=== PATIENT | female | born 2000 | race Hispanic/Latino ===

== ENCOUNTER 2023-11-22 20:42 | Emergency (ER) | payer MEDICAID, SELFPAY ==
--- NOTE | ~2023-11-22 | US_ITS ---
Pelvic ultrasound. Clinical History: Cramping, second trimester Technique: Realtime transabdominal and transvaginal scanning of the pelvis was performed. Color flow Doppler and Doppler spectral analysis were performed. Findings: The uterus is anteverted, and contains an intrauterine gestation. Cervix closed, measuring 4.9 cm in length. Placenta located towards the fundus. Biparietal diameter is 3.1 cm. Head circumfere nce is 11.4 cm. heart rate 157 bpm. Abdominal circumference is 9.9 cm. Femur length is 1.9 cm. Amniotic fluid index is 8.1.. The right ovary measures 3.6 x 1.8 x 2.3 cm. No significant right ovarian or adnexal mass is seen. The left ovary measures 2.4 x 1.6 x 2.2 cm. No significant left ovarian or adnexal mass is seen. There is no evidence of free fluid in the cul de sac. Impression: Live intrauterine gestation, with estimated gestational age of 15 weeks 4 days. heart rate 157 bpm. Sonographic WALTER is 05/11/2024. Reviewed, dictated and finalized at [facility]. INIST JOB SETTER Impression: Live intrauterine gestation, with estimated gestational age of 15 weeks 4 days. heart rate 157 bpm. Sonographic WALTER is 05/11/2024.
[2023-11-22 20:44] VITALS: BP 114/73; PULSE 94; RESP 18; TEMP 36.4; O2SAT 100
[2023-11-22 21:09] LABS: Basophils Percent Auto 0.2 % (0.2-1.2); Eosinophils Percent Auto 0.3 % (0-4.4); Hematocrit 36.9 % (37.0-47.0); Hemoglobin 12.6 g/dL (12.0-15.0); Immature Granulocyte Absolute 0.04 K/mm3 (0.00-0.031); Immature Granulocyte Percent A 0.4 % (0-0.5); Lymphocytes Absolute Auto 1.52 K/mm3 (0.9-3.2); Lymphocytes Percent Auto 13.8 % (18.3-44.2); Mean Corpuscular HGB Conc 34.1 g/dl (32-36); Mean Corpuscular Hemoglobin 30.4 pg (26-34); Mean Corpuscular Volume 88.9 fl (80-100); Mean Platelet Volume 9.3 fl (7.4-10.4); Monocytes Absolute Auto 0.7 K/mm3 (0.1-0.6); Monocytes Percent Auto 6.3 % (2.6-8.5); Neutrophils Absolute Auto 8.7 K/mm3 (1.3-6.7); Platelet Count Result 303 k/mm3 (150-375); Red Blood Count 4.15 M/mm3 (4.2-5.4); Red Cell Distribution Width 13.3 % (11.5-14.5)
[2023-11-22 21:13] LABS: Appearance Urine Cloudy (Clear); Bacteria Urine 2+ /hpf; Bilirubin Urine Negative (Negative); Blood Urine 3+ (Negative); Color Urine Yellow (Yellow); Glucose Urine UA Negative (Negative); Ketones Urine 2+ mg/dL (Negative); Leukocyte Esterase Ur 3+ LEU/UL (Negative); Nitrate Urine Positive (Negative); Protein Urine 2+ mg/dL (Negative); Specific Grav Ur 1.006 (1.001-1.035); Squamous Epithelial Cell Urine Moderate /hpf (Few); Urobilinogen Urine 0.2 mg/dL (<2.0); WBC Urine >100 /hpf; pH Urine 5.5 (5.0-9.0)
[2023-11-22 21:20] LABS: Alanine Aminotransferase 12 U/L (6-35); Albumin Level 3.9 g/dL (3.5-5.1); Alkaline Phosphatase 50 U/L (38-126); Anion Gap 11 mmol/L (8-16); Aspartate Amino Transferase 25 U/L (14-36); Bilirubin,Total 0.3 mg/dL (0.2-1.3); Blood Urea Nitrogen 4 mg/dL (7-17); Calcium 8.9 mg/dL (8.4-10.2); Carbon Dioxide 19 mmol/L (22-30); Chloride 105 mmol/L (98-107); Estimated CRCL calculation 119 ml/min; Estimated Glomerular Filt Rate > 60; Glucose 113 mg/dL (65-110); Lipase 27 U/L (23-300); Potassium 3.4 mmol/L (3.4-5.0); Sodium 135 mmol/L (137-145)
[2023-11-22 21:21] LABS: Add Urine Microscopic? YES
[2023-11-22 23:25] LABS: Influenza A QL RT-PCR Negative (Negative); Influenza B QL RT-PCR Negative (Negative); SARS-CoV-2 RNA PCR Negative (Negative)
[2023-11-22] MEDS: SODIUM CHLORIDE 0.9% IV 1,000 ML 999 ML IV CONT (23:44)
[2023-11-22] MEDS: ACETAMINOPHEN 500 MG TABLET 1000 MG PO (23:54)
--- NOTE | 2023-11-23 01:32 | ED.ABDPAIN ---
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 Reports the pain radiates to her left flank. It is sharp in nature. Also reports urinary frequency. Denies fevers, vomiting, dysuria, or hematuria. Related Data Allergies Allergy/AdvReac Type Severity Reaction Status Date / Time No Known Allergies Allergy Verified 11/22/23 20:46 Review of Systems Review of Systems: CONSTITUTIONAL: Denies fever GASTROINTESTINAL: Reports abdominal pain. Denies nausea, vomiting GENITOURINARY: Denies dysuria or hematuria. All systems reviewed & are unremarkable except as noted in HPI and below PMFSH Past Medical History Medical History (Updated 11/23/23 @ 01:42 by Dorina Christie PA-C) No active medical problems Social History Social History (Updated 11/23/23 @ 01:35 by Dorina Christie PA-C) Smoking status: Never smoker Exam Narrative: GENERAL: Well-appearing, well-nourished, and in no acute distress. HEAD: Normocephalic, atraumatic. EYES: EOMI. CHEST: Clear to auscultation. No respiratory distress. No wheezes rales or rhonchi HEART: Regular rate and rhythm. No murmur heard. Normal peripheral pulses. ABDOMEN: Gravid, nontender, nondistended, normal active bowel sounds. EXTREMITIES: Normal range of motion. No edema. SKIN: Warm, dry, no rash. NEURO: No focal deficits. Alert and oriented x3. PSYCH: Normal mood and affect Course Course Emergency Course: patient and family updated on workup and agree with plan of care. patient reports feeling much better Vital Signs Vital signs: Vital Signs Temperature 97.6 F 11/22/23 20:44 Pulse Rate 94 11/22/23 20:44 Respiratory Rate 18 11/22/23 20:44 Blood Pressure 114/73 11/22/23 20:44 Pulse Oximetry 100 11/22/23 20:44 Oxygen Delivery Room Air 11/22/23 20:44 Temperature 97.6 F 11/22/23 20:44 Pulse Rate 94 11/22/23 20:44 Respiratory Rate 18 11/22/23 20:44 Blood Pressure 114/73 11/22/23 20:44 Pulse Oximetry 100 11/22/23 20:44 Oxygen Delivery Room Air 11/22/23 20:44 MDM - Abdominal Pain MDM Narrative Medical decision making narrative: Patient presents to the emergency department for lower abdominal discomfort, about 16 weeks . She is afebrile and nontoxic appearing. Her vitals are stable. CBC with mild leukocytosis to 11. Metabolic panel without concerning findings. Urine is consistent with infection. Ultrasound OB is without acute abnormalities. Shows single, viable intrauterine gestation. Patient hydrated with L of IV fluids and given dose of Tylenol with relief. Given 1st dose of antibiotics IV in the ED. Will be continued on oral antibiotics and was instructed to have close follow-up with her OB. She was given warnings to return to the ER Differential Diagnosis Differential diagnosis: Likely other ( UTI, pyelonephritis, dehydration, threatened ) Lab Data Attestation: I reviewed the patient's lab results. 11/22/23 20:53 11/22/23 20:53 Labs: Lab Results 11/22/23 11/22/23 11/22/23 Range/Units 20:53 20:53 20:58 WBC 11.0 H (4.5-10.0) K/mm3 RBC 4.15 L (4.2-5.4) M/mm3 Hgb 12.6 (12.0-15.0) g/dL Hct 36.9 L (37.0-47.0) % MCV 88.9 (80-100) fl MCH 30.4 (26-34) pg MCHC 34.1 (32-36) g/dl RDW 13.3 (11.5-14.5) % Plt Count 303 (150-375) k/mm3 MPV 9.3 (7.4-10.4) fl Immature Gran % (Auto) 0.4 (0-0.5) % Neut % (Auto) 79.0 H (45.5-73.1) % Lymph % (Auto) 13.8 L (18.3-44.2) % [place] % (Auto) 6.3 (2.6-8.5) % Eos % (Auto) 0.3 (0-4.4) % Baso % (Auto)
[2023-11-23 02:25] VITALS: BP 100/64; PULSE 88; RESP 16; O2SAT 99
== END 2023-11-23 02:26 | disposition home or self-care (01) ==
PROVIDERS: Emergency Medicine; Emergency Provider Physician Assistant
DX: O23.02 Infections of kidney in pregnancy, second trimester (principal); Z3A.15 15 weeks gestation of pregnancy; Z20.822 Contact with and (suspected) exposure to COVID-19
CPT/HCPCS: 36415; 76816; 80053; 81001; 83690; 84702; 85025; 87086; 87186; 87636; 96361; 96365; 99284; A9270; J0696; J7030

== ENCOUNTER 2024-05-12 11:13 | Inpatient (IN) | payer OTHER, SELFPAY ==
[2024-05-12] VITALS (15 sets, daily range): BP systolic 88–118; BP diastolic 59–81; PULSE 73–127; RESP 16; TEMP 36.6–37; O2SAT 99; BMI 28.3
[2024-05-12 12:00] LABS: Basophils Percent Auto 0.2 % (0.2-1.2); Eosinophils Absolute Auto 0.1 K/mm3 (0-0.3); Hematocrit 35.7 % (37.0-47.0); Hemoglobin 11.9 g/dL (12.0-15.0); Immature Granulocyte Absolute 0.07 K/mm3 (0.00-0.031); Immature Granulocyte Percent A 0.7 % (0-0.5); Lymphocytes Absolute Auto 1.63 K/mm3 (0.9-3.2); Lymphocytes Percent Auto 17.3 % (18.3-44.2); Mean Corpuscular HGB Conc 33.3 g/dl (32-36); Mean Corpuscular Hemoglobin 30.1 pg (26-34); Mean Corpuscular Volume 90.4 fl (80-100); Mean Platelet Volume 10.2 fl (7.4-10.4); Monocytes Absolute Auto 0.8 K/mm3 (0.1-0.6); Monocytes Percent Auto 8.6 % (2.6-8.5); Neutrophils Absolute Auto 6.8 K/mm3 (1.3-6.7); Neutrophils Percent Auto 72.2 % (45.5-73.1); Platelet Count Result 257 k/mm3 (150-375); Red Blood Count 3.95 M/mm3 (4.2-5.4); Red Cell Distribution Width 13.5 % (11.5-14.5); White Blood Count 9.4 K/mm3 (4.5-10.0)
[2024-05-12] MEDS: LACTATED RINGERS 1,000 ML 125 ML IV CONT (12:01)
[2024-05-12] MEDS: AMPICILLIN 2 GM/NS 100 ML 2 GM/100 ML BAG IVPB (12:04)
[2024-05-12] MEDS: ONDANSETRON INJ 4 MG/2 ML VIAL IV PUSH (12:05)
[2024-05-12] MEDS: fentaNYL CITRATE INJ (*CRX) 100 MCG/2 ML VIAL 50 MCG IV PUSH ×2 (12:09→13:45)
[2024-05-12 12:51] LABS: HIV 1/2 Ab P24 Ag Result Negative (Negative)
[2024-05-12] MEDS: fentaNYL CITRATE INJ (*CRX) 100 MCG/2 ML VIAL IV PUSH (15:11)
[2024-05-12] MEDS: AMPICILLIN 1 GM/NS 50 ML 1 GM/50 ML BAG IVPB (15:59)
[2024-05-12] MEDS: OXYTOCIN 30 UNITS/NS 500 ML 30 UNITS/500 ML BAG 999 UNITS IV CONT (16:30)
--- NOTE | 2024-05-12 16:41 | P.PCNOB_ITS ---
OB - Vaginal Delivery Note Procedure Delivery date: 05/12/24 Induction method: None Delivery monitor: External FHT and External Uterine Route of delivery: Episiotomy description: None Laceration Description: Periurethral (left) Delivery repair: vicryl (3-0 on sh) Specimen: No Quantitative Blood Loss (ml): 200 Anesthesia type: Local Disposition: Floor Complications: No immediate complications Narrative: automotive painter helper used throughout pushing, delivery, and repair [place] Baby Date of : 05/12/24 Weeks of gestation at delivery: 40 (40 1/7) Infant gender: Male presentation: vertex position: Right Occiput Anterior Placenta delivery description: Spontaneous Cord Vessel Description: 3 Vessels and Other (short cord) score one minute: 9 score five minutes: 9
--- NOTE | 2024-05-12 16:41 | WPDOBADMIT ---
Obstetrics - Admit Note Admission Note: record reviewed. No pertinent additions to the history and/or any subsequent changes in the physical findings that are not consistent with the expected course of the were found. Additions to the history and/or subsequent changes in the physical findings follow. None.
--- NOTE | 2024-05-12 16:44 | PM.OBDSVD ---
DS: Admitting Diagnosis Discharge Date 05/14/24 Admitting Diagnosis IUP 40 10/29 in active labor DS: Discharge Diagnosis Discharge Diagnosis (1) (normal spontaneous vaginal delivery): Code(s): O80 - Encounter for full-term uncomplicated delivery Status: Acute OB - DS: Summary OB Procedures : Ultrasound OB Procedures Intrapartum: Spontaneous Vag Delivery OB Procedures: : None Peripartum Data Infant Delivery Method: Natural Vaginal Laceration Description: Periurethral (left) Episiotomy description: None complications: none Status at Discharge Functional status at discharge: independent ambulation Overall status at discharge: patient is progressing back to baseline Time Spent with Patient Time attestation: Total time spent providing and/or coordinating discharge services: DS: Data Data Completed and Pending Labs on day of discharge: Labs from last 24 hours 05/12/24 11:50 WBC 9.4 RBC 3.95 L Hgb 11.9 L Hct 35.7 L MCV 90.4 MCH 30.1 MCHC 33.3 RDW 13.5 Plt Count 257 MPV 10.2 Immature Gran % (Auto) 0.7 H Neut % (Auto) 72.2 Lymph % (Auto) 17.3 L [place] % (Auto) 8.6 H Eos % (Auto) 1.0 Baso % (Auto) 0.2 Lymph # (Auto) 1.63 [place] # (Auto) 0.8 H Eos # (Auto) 0.1 Baso # (Auto) 0.0 Abs Immat Gran (auto) 0.07 H Absolute Neuts (auto) 6.8 H Absolute Nucleated RBC 0.000 Nucleated RBC % 0.0 RPR Pending HIV 1&2 Ab/P24 Ag 4thGn Negative Blood Type O Positive Antibody Screen Negative Discharge Plan Discharge Attending physician on discharge: Terrence Fierro Discharging Clinician: Terrence Fierro Anticipated Discharge Date/Time: 05/14/24 16:45 Patient Disposition: Home, Self-Care Activity: pelvic rest Diet: regular Discharge Instructions: Call or return if temperature above 100.4? F, increased abdominal pain, increased vaginal bleeding or any new problems. Call WIC ([facility] in [place] #[phone] to set up your appointment, at this office they do have bilingual staff. A referral form was faxed to their office 05/14/24, they should have your information. Education: Mom and Baby Guide Given to: Mother Follow-Up: You have an appointment already set up with Dr. Vashti Lagunas regarding your post follow up for 6 weeks out on 06/26/24 @ 345pm Mom and baby should come to the [facility] for the follow-up appointment. Appointment Date/Time: May 15, 2024 at 9:00 am What to expect at your follow-up visit: Physical Assessment Call [phone] if you are unable to keep your appointment time. BREAST CARE: * Wear a snug supportive bra. * For engorgement discomfort: Breast Feeding: * Apply warm moist washcloths * Express milk as needed to relieve engorgement * Wear loose clothing Bottle Feeding: * May apply ice packs * For sore nipples: * Identify correct latch-on * Apply warm moist washcloths before and after nursing * Air dry nipples after nursing * May apply Lansinoh cream to nipples EPISIOTOMY/PERINEAL CARE: * Until bleeding stops, use your wilfredo bottle after urinating * Change your pad frequently throughout the day * You may take sitz baths several times a day (fill your bathtub with warm water and soak for 20 minutes.) Do NOT bathe in the water * No tub baths until seen by your physician - You may shower ACTIVITY: * Rest as much as possible. * Do not exercise or lift anything heavier than your baby (such as laundry or other children.) * Avoid stairs or driving as much as possible. * Do not put anything into the vagina. No douching, tampons, or sexual activity until seen by physician. NOTIFY PHYSICIAN IF YOU HAVE ANY QUESTIONS OR IF ANY OF THE FOLLOWING SYMPTOMS OCCUR: * If your episiotomy/perineum becomes red, swollen, or more painful than what you mcnamara
[2024-05-12] MEDS: OXYTOCIN 30 UNITS/NS 500 ML 30 UNITS/500 ML BAG 125 UNITS IV CONT (17:01)
[2024-05-12] MEDS: IBUPROFEN 600 MG TABLET PO (17:14)
[2024-05-12] MEDS: ACETAMINOPHEN 325 MG TABLET 650 MG PO (17:15)
[2024-05-12] MEDS: BENZOCAINE 20% AER SPR (*SP) 56 GM CAN 1 SPRAY TOPICAL (17:16)
[2024-05-12] MEDS: WITCH HAZEL 40 PADS 1 PAD TOPICAL (17:16)
--- NOTE | 2024-05-12 22:10 | OBPPTRN ---
05/12/2024 @ 1842 Patient transferred to post room #285. Support person present. Patient and her significant other oriented to unit, room, information board, rooming in, admission packet and security measures with the medical education coordinator line and the help of a family member who is fluent in Kazakh and Hungarian . Patient verbalizes understanding.
[2024-05-13 05:37] LABS: Hematocrit 32.7 % (37.0-47.0); Hemoglobin 10.8 g/dL (12.0-15.0)
[2024-05-13 08:00] VITALS: BP 89/54; PULSE 79; RESP 16; TEMP 36.5; O2SAT 100
--- NOTE | 2024-05-13 08:11 | PC.NURSE ---
[employer] used to talk with patient this morning, [employer] Jarett ID# [id number]
[2024-05-13] MEDS: IBUPROFEN 600 MG TABLET PO (08:28)
[2024-05-13] MEDS: ACETAMINOPHEN 325 MG TABLET 650 MG PO ×2 (08:29→18:45)
[2024-05-13] MEDS: MULTIVIT/MIN/PREN/FOL AC/IRON TABLET 1 TAB PO (08:29)
[2024-05-13] MEDS: DOCUSATE SODIUM 100 MG CAPSULE PO (08:29)
--- NOTE | 2024-05-13 09:10 | P.PNOB_ITS ---
OB - PN: Subj Subjective Date/time seen: 05/13/24 09:10 Narrative: Pain OK. Would like to go home. OB - PN: Obj Data Labs 05/13/24 05:13 Labs: Laboratory Results - last 24 hr 05/12/24 05/13/24 11:50 05:13 WBC 9.4 RBC 3.95 L Hgb 11.9 L 10.8 L Hct 35.7 L 32.7 L MCV 90.4 MCH 30.1 MCHC 33.3 RDW 13.5 Plt Count 257 MPV 10.2 Immature Gran % (Auto) 0.7 H Neut % (Auto) 72.2 Lymph % (Auto) 17.3 L [place] % (Auto) 8.6 H Eos % (Auto) 1.0 Baso % (Auto) 0.2 Lymph # (Auto) 1.63 [place] # (Auto) 0.8 H Eos # (Auto) 0.1 Baso # (Auto) 0.0 Abs Immat Gran (auto) 0.07 H Absolute Neuts (auto) 6.8 H Absolute Nucleated RBC 0.000 Nucleated RBC % 0.0 HIV 1&2 Ab/P24 Ag 4thGn Negative Blood Type O Positive Antibody Screen Negative OB - PN A/P Plan Comments: A: PPD#1, doing well. P: Home to f/u 6 weeks. Exam Psych: Other: AVSS ABD soft, nontender, fundus firm EXT nontender
--- NOTE | 2024-05-13 09:10 | PM.OBDSVD ---
DS: Admitting Diagnosis Discharge Date 05/13/24 Admitting Diagnosis IUP at term Labor DS: Discharge Diagnosis Discharge Diagnosis (1) (normal spontaneous vaginal delivery): Code(s): O80 - Encounter for full-term uncomplicated delivery Status: Acute OB - DS: Summary OB Procedures : None OB Procedures Intrapartum: Spontaneous Vag Delivery OB Procedures: : None Peripartum Data Laceration Description: Periurethral (left) Episiotomy description: None Time Spent with Patient Time attestation: Total time spent providing and/or coordinating discharge services: DS: Data Data Completed and Pending Labs on day of discharge: Labs from last 24 hours 05/13/24 05/12/24 05:13 11:50 WBC 9.4 RBC 3.95 L Hgb 10.8 L 11.9 L Hct 32.7 L 35.7 L MCV 90.4 MCH 30.1 MCHC 33.3 RDW 13.5 Plt Count 257 MPV 10.2 Immature Gran % (Auto) 0.7 H Neut % (Auto) 72.2 Lymph % (Auto) 17.3 L [place] % (Auto) 8.6 H Eos % (Auto) 1.0 Baso % (Auto) 0.2 Lymph # (Auto) 1.63 [place] # (Auto) 0.8 H Eos # (Auto) 0.1 Baso # (Auto) 0.0 Abs Immat Gran (auto) 0.07 H Absolute Neuts (auto) 6.8 H Absolute Nucleated RBC 0.000 Nucleated RBC % 0.0 RPR Pending HIV 1&2 Ab/P24 Ag 4thGn Negative Blood Type O Positive Antibody Screen Negative Discharge Plan Discharge Attending physician on discharge: Terrence Fierro Discharging Clinician: Terrence Fierro Anticipated Discharge Date/Time: 05/14/24 16:45 Patient Disposition: Home, Self-Care Activity: pelvic rest Diet: regular Discharge Instructions: Call or return if temperature above 100.4? F, increased abdominal pain, increased vaginal bleeding or any new problems. Stand Alone Forms: General Discharge Information Follow-up/Referrals: German Altman MD [Physician] - 6 Weeks Discharge Medications: New ibuprofen 600 mg tablet 600 mg PO Q6H PRN (Reason: cramps) Qty: 30 0RF Continued Classic 28 mg iron- 800 mcg Tablet 1 tablet PO DAILY Date of admission: 05/12/24 11:13 Primary Care Provider: UNKNOWN,DOCTOR Admitting Provider: German Altman Attending physician on admission: German Altman Condition: Stable
[2024-05-13 11:25] LABS: Rapid Plasma Reagin Non-Reactive (NonReactive)
[2024-05-13 11:59] VITALS: BP 90/53; PULSE 78; RESP 16; TEMP 36.6; O2SAT 99
--- NOTE | 2024-05-13 14:31 | PC.NURSE ---
Neonatal Intensive Care Unit Nurse Sven ID #[id number] helped with . we discussed positioning and got baby latched on in a football hold. Discussed that baby should nurse about 10-15 min on each side and then if mother would like she can supplement with formula or if she feels like baby nursed well she did not need to supplement. She verbalized understanding. She states she does not have a finance business manager at this time but will have one picked out before discharge. Today when Dr. Fierro was here he asked that I call the office to make the patient's 6 week follow up appt, I called the office and the appt time is MonJun 26 at 3:45pm, this appt information was given to the patient, she states that time works for her and she will be able to make the appt. Pt has no other questions at this time and denies pain at this time.
[2024-05-13 21:19] VITALS: BP 99/67; PULSE 78; RESP 16; TEMP 36.7; O2SAT 99
[2024-05-14 07:45] VITALS: BP 94/58; PULSE 78; RESP 16; TEMP 36.4; O2SAT 100
--- NOTE | 2024-05-14 08:03 | PC.NURSE ---
RN in room, used golf club maker ([employer]), user name Bettina #[id number] from 0803 until 0817. RN talked about needing to do the patient's assessment, medications to be given and that the technician semiconductor development would be in shortly to discuss baby. Mother stated she would need a breast pump and would need information regarding WIC enrollment, the car seat she brought in is new and that she would watch the discharge video when she could. RN to check on the discharge video status, previous RN could not get the video to play online. RN completed assessment and mother had no questions for the RN. Lead Data Architect in room at 0811 and answered mother's questions. RN inquired when the father of the baby would be here in order to complete the baby's certificate, per mother he will be here after 4pm as he is at work, they are not but she would like him on the certificate, RN to let the front office secretary know. RN to also let know that the patient needs an insurance breast pump to take home and that a WIC referral sheet will need to be faxed to the [place] office.
[2024-05-14] MEDS: ACETAMINOPHEN 325 MG TABLET 650 MG PO (08:10)
[2024-05-14] MEDS: DOCUSATE SODIUM 100 MG CAPSULE PO (08:10)
[2024-05-14] MEDS: MULTIVIT/MIN/PREN/FOL AC/IRON TABLET 1 TAB PO (08:10)
--- NOTE | 2024-05-14 09:05 | PC.NURSE ---
Computer Lab Assistant used for this meeting with the patient. Consulted with patient to assess needs related to . Discussed with mother her successes, concerns and any questions she has. We reviewed working with the , supporting breast, protecting her nipples with an optimal deep latch, good positioning. Educated on duration of feedings and milk production. Reviewed positioning and alignment, supporting breast, off-centered (asymmetrical latch) and leading with the chin with big, open, wide gape. Infant latched optimally to the [left and right] breasts in [cross cradle] position. Mother was able to latch infant independently. Encouraged her to look for the nose and chin being close to the breast to ensure a deep latch. The was [able] to maintain latch but was sleepy and only suckled intermittently. Mother does state she is sore, and the soreness was better when we adjusted for a deeper latch. Encouraged mother to maintain the deep latch and not let baby slip to just the nipple. Nipple care reviewed with optimal latch, good positioning. There does not to be any trauma or skin breakdown to her nipples. Reviewed the feeding plan with mother and that she should continue to attempt to feed at breast for 15 minutes and then pump and supplement. Also discussed milk production and that having only drops or small amounts until day 3 or 4 is expected. Not having any milk is one of her biggest concerns. Mother would like one of the insurance pumps for home use. Resources used to facilitate learning were used from the mom and baby guide. Mother voiced understanding of the education shared, to call for assistance if the infant does not latch or if there is discomfort with . Reported to the Primary RN.
--- NOTE | 2024-05-14 10:30 | PC.NURSE ---
Patient viewed the discharge video Mother & Baby Care, The First Two Weeks online via her cell phone, she was able to scan the QR code and view the [place] version. Patient was given the opportunity and encouraged to ask questions. Patient verbalized understanding of information shared and has been given the mother/baby guide for home reference.
--- NOTE | 2024-05-14 14:28 | PC.NURSE ---
RN in room using [employer] Stringer Machine Tender, speaking with Denise #[id number] from [phone], [place] in room doing certificate paperwork with mother and father. RN then completed the discharge instructions for mother and baby, mother was able to ask questions and RN able to answer. RN went over feeding plan extensively and that mother is to return tomorrow with baby at 0900 for her follow up appointment at [facility]. Patient and baby were both discharged home @ 1526.
[2024-05-15 09:12] VITALS: BP 106/75; PULSE 99; RESP 18; TEMP 36.8; O2SAT 100
== END 2024-05-14 15:26 | disposition home or self-care (01) | DRG 560 ==
LOC: ANHLDR 18:17 → ANHOB2 05-14 11:11 → ANHLDR 05-15 07:31 → ANHOB2 05-15 07:31
PROVIDERS: Admitting Provider Obstetrics & Gynecology Gynecology; Visit Provider Obstetrics & Gynecology
DX: O69.3XX0 Labor and delivery complicated by short cord, not applicable or unspecified (principal); O71.82 Other specified trauma to perineum and vulva; O99.824 Streptococcus B carrier state complicating childbirth; Z3A.40 40 weeks gestation of pregnancy; Z37.0 Single live birth
CPT/HCPCS: 36415; 85014; 85018; 85025; 86592; 86703; 86850; 86900; 86901; A9270; G0432; J0290; J2405; J2590; J3010; J7120

== ENCOUNTER 2024-08-05 18:24 | Emergency (ER) | payer OTHER, SELFPAY ==
[2024-08-05 18:27] VITALS: BP 129/81; PULSE 71; RESP 16; TEMP 36.6; O2SAT 100
[2024-08-05 19:09] LABS: Add Urine Microscopic? YES; Appearance Urine Clear (Clear); Bacteria Urine None Seen /hpf; Bilirubin Urine Negative (Negative); Blood Urine Negative (Negative); Color Urine Yellow (Yellow); Glucose Urine UA Negative (Negative); Ketones Urine Negative (Negative); Leukocyte Esterase Ur Trace LEU/UL (Negative); Nitrate Urine Negative (Negative); Non Pathogenic Casts 0-2; Protein Urine Negative (Negative); RBC Urine 0-2 /hpf (0-2); Specific Grav Ur 1.013 (1.001-1.035); Squamous Epithelial Cell Urine Few /hpf (Few); Urobilinogen Urine 0.2 mg/dL (<2.0); WBC Urine 0-5 /hpf (0-3)
[2024-08-05 20:51] LABS: Pregnancy On Board Control Positive; Urine Pregnancy Test Negative
--- NOTE | 2024-08-05 21:49 | ED.GENADULT ---
HPI - General Adult General Chief complaint: Urogenital-Female <Ermias Fowler MD - Last Filed: 08/06/24 19:26> Stated complaint: BACK PAIN X5D <Ermias Fowler MD - Last Filed: 08/06/24 19:26> Time Seen by Provider: 08/05/24 19:20 <Ermias Fowler MD - Last Filed: 08/06/24 19:26> History of Present Illness HPI narrative: 24-year-old female present to the emergency department for evaluation for low back pain and vaginal discharge. Patient states that her vaginal discharge does have a foul odor and has been going on for the last few days. Patient denies any pain with urination. <Ermias Fowler MD - Last Filed: 08/06/24 19:26> Related Data Home medications: Home Medications Medication Instructions Recorded Confirmed vits no.126-ferrous fum 1 tablet PO DAILY 05/07/24 05/07/24 28 mg iron-folic acid 800 mcg tablet (Classic ) <Ermias Fowler MD - Last Filed: 08/06/24 19:26> Allergies/adverse reactions: Allergies Allergy/AdvReac Type Severity Reaction Status Date / Time No Known Allergies Allergy Verified 05/07/24 14:21 <Ermias Fowler MD - Last Filed: 08/06/24 19:26> Review of Systems Review of Systems: All systems reviewed & are unremarkable except as noted in HPI and below <Ermias Fowler MD - Last Filed: 08/06/24 19:26> [facility] Past Medical History Medical History: Medical History (Updated 08/06/24 @ 00:00 by Delia Caceres) No active medical problems <Ermias Fowler MD - Last Filed: 08/06/24 19:26> Family History Family History: Family History (Updated 05/07/24 @ 14:33 by Serenity Ferrari RN) Other Unknown family medical history <Ermias Fowler MD - Last Filed: 08/06/24 19:26> Social History Social History: Social History (Updated 11/23/23 @ 01:35 by Dorina Christie PA-C) Smoking status: Never smoker Second hand tobacco smoke exposure: No Substance use: never Do You Feel Safe in your Home?: Yes Lack of Transportation: No Lack of Food: Never True Current Housing: I Have Housing Concerned About Future Housing: No Difficulty Paying Gas/Electric Bills: No Difficulty Paying for Meds: No Currently Unemployed: YES Education: Grade School Difficulty w/ Childcare or Family Care: No Spiritual care concerns: No <Ermias Fowler MD - Last Filed: 08/06/24 19:26> Exam Narrative: APPEARANCE: Well appearing, no pain, no distress, well-nourished. HEAD: normocephalic, atraumatic. EYES: PERRLA/EOMI, conjunctivae clear. NOSE: Normal no drainage NECK: Supple. No adenopathy, no masses. RESPIRATORY: Airway patent, respirations nonlabored. Clear to auscultation bilaterally, no rales, rhonchi, wheezing. CARDIOVASCULAR: Regular rate and rhythm without murmurs rubs or gallops. ABDOMINAL: Soft, nontender, nondistended, normal bowel sounds MUSCULOSKELETAL: Moves all extremities. Strength/ROM intact, No edema, No calf tenderness. NEURO: Alert. Cranial nerves II through XII intact. Grossly intact SKIN: Warm, dry. Normal Color Pelvic exam: White thin vaginal discharge <Ermias Fowler MD - Last Filed: 08/06/24 19:26> Course Vital Signs Vital signs: Vital Signs Temperature 97.9 F 08/05/24 18:27 Pulse Rate 71 08/05/24 18:27 Respiratory Rate 16 08/05/24 18:27 Blood Pressure 129/81 08/05/24 18:27 Pulse Oximetry 100 08/05/24 18:27 Oxygen Delivery Room Air 08/05/24 18:27 Temperature 97.9 F 08/05/24 18:27 Pulse Rate 71 08/05/24 18:27 Respiratory Rate 16 08/05/24 18:27 Blood Pressure 129/81 08/05/24 18:27 Pulse Oximetry 100 08/05/24 18:27 Oxygen Delivery Room Air 08/05/24 18:27 <Ermias Fowler MD - Last Filed: 08/06/24 19:26> Vital Signs Temperature 97.9 F 08/05/24 18:27 Pulse Rate 71 08/05/24 18:27 Respiratory Rate 16 08/05/24 18:27 Blood Pressure 129/81 08/05/24 18:27 Pulse Oximetry 100 1
[2024-08-05 21:50] LABS: Trichomonas Vag PCR NOT DETECTED (NOT DETECTE)
[2024-08-05 22:13] LABS: Chlamydia trachomatis NOT DETECTED (NOT DETECTE); Neisseria gonorrhoeae PCR NOT DETECTED (NOT DETECTE)
--- NOTE | 2024-08-05 22:30 | PC.NURSE ---
Pt pressed call light asking for update. Pt updated that tests have not resulted.
--- NOTE | 2024-08-05 23:17 | PC.NURSE ---
Pt states she is . Pharmacy contacted by this RN. Per phamacist, pt should not take oral flagyl. Dr. Azar notified and order changed to vaginal flagyl. Pt verbalized that she is in a hurry to leave d/t needing to take care of children. 1st dose not administered here, but sent to pharmacy. Refused final set of VS.
[2024-08-07 13:33] LABS: Bacterial Vaginosis POSITIVE (NEGATIVE)
== END 2024-08-05 23:21 | disposition home or self-care (01) ==
PROVIDERS: Emergency Provider Emergency Medicine
DX: N76.0 Acute vaginitis (principal)
CPT/HCPCS: 81001; 81025; 81513; 87491; 87591; 87661; 99284